=== PATIENT | male | born 1980 | race Caucasian/White ===

== ENCOUNTER 2017-04-29 18:12 | Emergency (ER) | payer BC ==
[2017-04-29] MEDS ORDERED: Benzocaine 20% Topical Spray UD MUCMEM ONE (18:45)
[2017-04-29] MEDS ORDERED: Lidocaine 2% Viscous Solution 15 ML Cup PO ONE (18:45)
--- NOTE | 2017-04-29 18:50 | EDM.PDOC ---
ED HPI GENERAL MEDICAL PROBLEM - General Chief Complaint: ENT Problem Stated Complaint: TOOTH PAIN/SWELLING Time Seen by Provider: 04/29/17 18:45 - History of Present Illness INITIAL COMMENTS - FREE TEXT/NARRATIVE: HISTORY AND PHYSICAL: History of present illness: The patient is a 36-year-old male with known problems with some of his teeth more specifically with one of the right molars that he noticed a small chip for which he was planning on calling the dentist and getting evaluation; the patient presents today because he noticed some swelling at the gum in that same area and then felt a bad taste in his mouth and felt like pus was draining from that area. He has not had systemic complaints of fever chills sore throat runny nose chest pain or shortness of breath. The patient has felt somewhat fatigued and has been rinsing his mouth with Listerine. Review of systems: As per history of present illness and below otherwise all systems reviewed and negative. Past medical history: As per history of present illness and as reviewed below otherwise noncontributory. Surgical history: As per history of present illness and as reviewed below otherwise noncontributory. Social history: No reported history of drug or alcohol abuse. Family history: As per history of present illness and as reviewed below otherwise noncontributory. Physical exam: Gen.: Well-developed well-nourished man who is nontoxic and speaking clearly and easily in the ED. He has no visible facial swelling HEENT: Atraumatic, normocephalic, pupils reactive, negative for conjunctival pallor or scleral icterus, mucous membranes moist, throat clear, neck supple, nontender, trachea midline. There is no cervical adenopathy or nuchal rigidity. There are several areas of dental disease and decay and at the right upper molar area there is some gum swelling around the area of teeth 1-3 but tooth 1 1 is not present, there is no fluctuance in this area and there is tenderness is no visible drainage seen. Lungs: Clear to auscultation, breath sounds equal bilaterally, chest nontender. Heart: S1S2, regular rate and rhythm no overt murmurs Abdomen: Soft, nondistended, nontender. NABS Skin: Normal turgor no evidence of any overt rashes or lesions Genitourinary: Deferred. Rectal: Deferred. Extremities: Atraumatic, full range of motion without any defects or deficits Neurovascular unremarkable. Neuro: Awake, alert, oriented. Cranial nerves II through XII unremarkable. Cerebellum unremarkable. Motor and sensory unremarkable throughout. Exam nonfocal. Diagnostics: [] Therapeutics: Dental balls Impression: Dental infection/pain Definitive disposition and diagnosis as appropriate pending reevaluation and review of above. Right Upper Oral/Mouth Pain Score (Numeric/FACES): 5 - Related Data Allergies Allergy/AdvReac Type Severity Reaction Status Date / Time No Known Allergies Allergy Verified 04/29/17 18:27 Home Meds: Home Meds . [No Known Home Meds] 04/29/17 [History] Past Medical History Respiratory History: Reports: Pneumothorax, Other (See Below) Neurological History: Reports: Other (See Below) Other Neuro History: brain bleed - Past Surgical History Respiratory Surgical History: Reports: Tracheostomy Musculoskeletal Surgical History: Reports: Other (See Below) Other Musculoskeletal Surgeries/Procedures:: bilat foot surgeries. comp fx femur. broken pelvis. radial fx Social & Family History - Family History Family Medical History: Noncontributory - Tobacco Use Smoking Status *Q: Current Every Day Smoker Years of Tobacco use: 18 Packs/Tins Daily: 1 Second Hand Smoke Exposure: No - Caffeine Use Caffeine Use: Reports: Coffee, Soda - Recreational Drug Use Recreational Drug Use: No ED ROS GENERAL - Review of Systems Review Of Systems: ROS reveals no pertinent complaints other than HPI. ED EXAM, GENERAL - Physical Exam Exam: See Below (See dictation) Course - Vital Signs Last Recorded V/S: Last Vital Signs Temp 36.6 C 04/29/17 18:24 Pulse 56 L 04/29/17 18:24 Resp 18 04/29/17 18:24 BP 141/91 H 04/29/17 18:24 Pulse Ox 96 04/29/17 18:24 - Orders/Labs/Meds Orders: Active Orders 24 hr Category Date Time Status Benzocaine [Hurricaine One 20%] Med 04/29/17 18:45 Once 2 each MUCMEM ONETIME ONE Lidocaine 2% [Xylocaine 2% Viscous] Med 04/29/17 18:45 Once 15 ml PO ONETIME ONE Departure - Departure Time of Disposition: 18:49 Disposition: Home, Self-Care 01 Condition: Good Clinical Impression: Dental infection - Discharge Information Referrals: PCP,None [Primary Care Provider] - Additional Instructions: The following information is given to patients seen in the emergency department who are being discharged to home. This information is to outline your options for follow-up care. We provide all patients seen in our emergency department with a follow-up referral. The need for follow-up, as well as the timing and circumstances, are variable depending upon the specifics of your emergency department visit. If you don't have a primary care physician on staff, we will provide you with a referral. We always advise you to contact your personal physician following an emergency department visit to inform them of the circumstance of the visit and for follow-up with them and/or the need for any referrals to a consulting specialist. The emergency department will also refer you to a specialist when appropriate. This referral assures that you have the opportunity for followup care with a specialist. All of these measure are taken in an effort to provide you with optimal care, which includes your followup. Under all circumstances we always encourage you to contact your private physician who remains a resource for coordinating your care. When calling for followup care, please make the office aware that this follow-up is from your recent emergency room visit. If for any reason you are refused follow-up, please contact the [facility] emergency department at and ask to speak to the emergency department charge nurse. [facility] [address] Use ice to the face if there is any swelling and rinse mouth as we discussed after each meal. Please take antibiotics you have been prescribed, amoxicillin, until they're finished and use the dental balls you have been given here in the ED for pain and discomfort. He may also use [id number] Tylenol or ibuprofen. Please contact your dentist or a local area dentist for definitive care and treatment and return to ER as needed and as discussed - My Orders Last 24 Hours: My Active Orders 04/29/17 18:45 Benzocaine [Hurricaine One 20%] 2 each MUCMEM ONETIME ONE Lidocaine 2% [Xylocaine 2% Viscous] 15 ml PO ONETIME ONE - Assessment/Plan Last 24 Hours: My Active Orders 04/29/17 18:45 Benzocaine [Hurricaine One 20%] 2 each MUCMEM ONETIME ONE Lidocaine 2% [Xylocaine 2% Viscous] 15 ml PO ONETIME ONE
[2017-04-29 19:08] VITALS: BP 126/74
== END 2017-04-29 19:00 | disposition home or self-care (01) ==
LOC: MW.ED 18:12
DX: K04.7 Periapical abscess without sinus (principal); F17.210 Nicotine dependence, cigarettes, uncomplicated; Z98.890 Other specified postprocedural states
CPT/HCPCS: 99283; A9270; 99282